=== PATIENT | female | born 1955 | race Caucasian/White ===

== ENCOUNTER 2019-10-21 13:24 | Inpatient (IN) ==
[2019-10-21] MEDS ORDERED: PNEUMOVAX 23 IM ONE (14:45)
[2019-10-21] MEDS ORDERED: FLU VACCINE IM ONE (14:45)
[2019-10-21] MEDS ORDERED: ZOFRAN IV PRN (15:30)
[2019-10-21] MEDS ORDERED: MORPHINE IV PRN (15:36)
[2019-10-21 16:41] LABS: AGAP 12; ALBUMIN 4.1 g/dL (3.5-5.0); ALKALINE PHOSPHATASE 106 U/L (32-104); BASO# 0.02 X1000 (0.0-0.2); BASO% 0.2 % (0.0-0.8); BUN 11 mg/dL (8-22); CALCIUM 9.4 mg/dL (8.8-10.2); CHLORIDE 104 mmol/L (98-107); CK PROFILE 38 U/L (24-173); COSMO 284; CREATININE 0.6 mg/dL (0.5-0.9); ESTIMATED GFR > 60; GLUCOSE 100 mg/dL (70-104); GOT 15 U/L (10-30); GPT 16 U/L (10-36); HEMATOCRIT 42.6 % (37.0-47.0); HEMOGLOBIN 13.9 g/dL (12.0-16.0); IMM GRAN# 0.06 X1000 (0.0-0.04); IMM GRAN% 0.6 % (0.0-0.5); LYMPH# 2.37 X1000 (1.2-3.4); LYMPH% 24.4 % (20.5-51.1); MCH 30.2 PG (27-31); MCHC 32.6 g/dL (33-37); MCV 92.4 FL (81-99); MONO# 0.77 X1000 (0.11-0.59); MONO% 7.9 % (1.7-9.3); MPV 10.5 FL (7.4-10.4); NEUT# 6.38 X1000 (1.4-6.5); NEUT% 65.9 % (42.2-75.2); PLT 394 X1000 (130-400); RBC 4.61 XMIL (4.2-5.4); RDW 12.4 % (11.5-14.5); SODIUM 143 mmol/L (136-145); TCO2 27 mmol/L (25-35); TOTAL PROTEIN 7.3 g/dL (6.3-8.3)
[2019-10-21] MEDS: NS 1,000 ML IV SCH (16:44)
[2019-10-21 16:45] LABS: INR 0.96; PROTIME 13.3 Seconds (11.0-16.0)
[2019-10-21] MEDS: LEVAQUIN 750 MG/D5W 750 MG/150 ML IVPB IV SCH (16:45)
[2019-10-21] MEDS: PROTONIX IV SCH (16:45)
[2019-10-21] MEDS: SODIUM CHLORIDE 0.9% INJ SCH (16:46)
[2019-10-21] MEDS ORDERED: DILAUDID IV PRN (18:12)
--- NOTE | 2019-10-21 18:41 | HISTORY AND PHYSICAL ---
PRIMARY CARE PHYSICIAN: Brian Rain DO CHIEF COMPLAINT: Abdominal pain. HISTORY OF PRESENT ILLNESS: Ms. Mix is a 64-year-old female with past medical history of hypertension and arthritis who presented to the hospital today as a direct admit from Dr. Rain's office. The patient states that she went to [facility] on Monday and was diagnosed with diverticulitis. She was started on Augmentin. She continued to have abdominal pain, nausea, and diarrhea, so she decided to go to Dr. Rain's office today. Dr. Rain did do an abdominal scan which showed acute diverticulitis and subsequently decided to admit the patient to the hospital under our services. The patient is complaining of nausea without vomiting, diarrhea with some minimal blood, chills, severe abdominal pain in the lower quadrant that radiates to the upper quadrant and weakness. She denies any cough, congestion, flu-like symptoms, dizziness, neck pain, excessive thirst, chest pain, palpitations, orthopnea, PND, leg edema, dyspnea, vomiting, constipation, dysuria, hematuria, muscle pain or weakness, syncope, dizziness, or any other pertinent symptoms at this time. REVIEW OF SYSTEMS: A 10 point review of systems has been obtained and are negative except what is stated above in HPI. PAST MEDICAL HISTORY: 1. Hypertension. 2. Arthritis. 3. Diverticulitis. PAST SURGICAL HISTORY: 1. Hysterectomy. 2. Cholecystectomy. 3. Appendectomy. 4. Tubal ligation. FAMILY HISTORY: Mother has heart problems, lung cancer, and an aortic aneurysm and also she had a femoral aneurysm. Father had COPD and lung cancer, which she also has a brother that has heart problems. SOCIAL HISTORY: She lives in [place]. She is retired recently in June. She admits to smoking a pack a day of cigarettes for greater than 30 years. She did recently quit smoking last week. She has been using Nicorette gum for smoking cessation. She denies any alcohol or illicit drug use. She denies any use of a cane or walker, or oxygen, CPAP or BiPAP use. PATIENT'S PHARMACY: [facility]. ALLERGIES: No known drug allergies. HOME MEDICATIONS: 1. Valsartan 160 mg p.o. daily. 2. Augmentin 875/125 one tablet p.o. b.i.d. PHYSICAL EXAM: VITAL SIGNS: Temperature 97.8 degrees, pulse rate 94, respiratory rate 20, blood pressure 113/69, O2 saturation 97% on room air. GENERAL: This is a 64-year-old female. She is lying in the bed. She is in no acute distress. She is well nourished and well developed. HEENT: Atraumatic, normocephalic. Pupils equal, round, reactive to light. Mucous membranes are dry. NECK: Supple. No lymphadenopathy. Trachea midline. No JVD. CV: Regular rate and rhythm. No murmurs, gallops, or rubs appreciated. RESPIRATORY: Lung sounds clear. Equal chest excursion. Respirations nonlabored. No accessory muscle usage. GI: Abdomen is tender. It is nondistended. Bowel sounds present x4. : CV tenderness noted. Patient is voiding without difficulty. NEUROLOGIC: Patient is awake, alert, oriented, able to follow all commands appropriately. No deficits noted. MUSCULOSKELETAL: Full distal strength noted. No abnormalities. No deformities. EXTREMITIES: No clubbing, no cyanosis, no edema. DP and PT pulses are present and palpable. SKIN: Warm, dry, intact. No rashes. No bruises. No diaphoresis. LABORATORY AND DIAGNOSTICS: White blood cell count 9.70, hemoglobin 13.9, hematocrit 42.6, platelet count 394,000. Sodium 143, potassium 4.0, BUN is 11, creatinine 0.6, estimated GFR is greater than 60. The patient did have abdominal scan at Dr. Rain's office today that showed positive for diverticulitis. ASSESSMENT: 1. Acute diverticulitis. 2. Dehydration. 3. Hypertension, chronic. 4. Tobacco dependency. PLAN: We will admit this patient to the medical floor. We will place this patient on IV fluid hydration of normal saline at 125 mL an hour. Start this patient on Levaquin 750 mg intravenous every 24 hours. Hold this patient NPO at this present time, except for ice chips and advance diet as tolerated. I will place her on bander and cellophaner machine, give her supplemental O2 as needed. We will repeat labs in the morning. We will provide her with morphine 2 mg IV q.3 hours p.r.n. pain. We will provide her with Zofran 4 mg IV q.4 hours. I will also provide her Protonix 40 mg IV q.24 hours. We will resume her home medications and once reconciled in the computer. I will provide her with sequential compression devices for deep vein thrombosis prophylaxis. I did talk to her about smoking cessation information for greater than 3 minute. The patient is already on a plan for this. I did provide her with a nicotine patch. All other further treatment pending hospital course and laboratory data. Dictated by PATRICIA Ulloa for Rik Soto MD cc: MD Brian Mai DO MTDD
[2019-10-21] MEDS: NICODERM PATCH TD SCH (19:30)
--- NOTE | 2019-10-21 19:34 | HISTORY AND PHYSICAL ---
ADDENDUM: Patient seen and examined by myself, full note dictated and discussed with nurse practitioner. The patient was seen over the weekend walk in clinic for diverticulitis. She was placed on Augmentin. Unfortunately she continues to worsen. She still having abdominal pain. Does have a history of diverticulosis but has never been infected before. We are going to admit her to the hospital, place her on antibiotics, fluids and will follow. cc: Rik Soto MD
[2019-10-21] MEDS: FLAGYL 500 MG/NS 500 MG/100 ML IVPB IV SCH (20:00)
[2019-10-21 22:15] LABS: URINE SOURCE CLEAN CATCH
[2019-10-21 22:17] LABS: BILIRUBIN URINE NEGATIVE (NEGATIVE); BLOOD URINE NEGATIVE (NEGATIVE); COLOR YELLOW; GLUCOSE URINE NEGATIVE (NEGATIVE); KETONE URINE NEGATIVE (NEGATIVE); LEUKOCYTES URINE NEGATIVE (NEGATIVE); NITRITE URINE NEGATIVE (NEGATIVE); PROTEIN URINE 50 mg/dL (NEGATIVE); SP GRAVITY URINE 1.031; TURBIDITY URINE HAZY (CLEAR); UR EPITHELIAL CELLS >10 /HPF (<10); URINE BACTERIA NEGATIVE /HPF; URINE RBC <10 /HPF (<10); URINE WBC <10 /HPF (<10); UROBILINOGEN URINE NORMAL (NORMAL)
[2019-10-22] MEDS: NS 1,000 ML IV SCH ×3 (00:23→21:14)
[2019-10-22] MEDS: FLAGYL 500 MG/NS 500 MG/100 ML IVPB IV SCH ×4 (02:00→21:14)
[2019-10-22 06:57] LABS: HEMATOCRIT 40.7 % (37.0-47.0); HEMOGLOBIN 13.1 g/dL (12.0-16.0); MCH 29.9 PG (27-31); MCHC 32.2 g/dL (33-37); MCV 92.9 FL (81-99); MPV 10.6 FL (7.4-10.4); RBC 4.38 XMIL (4.2-5.4); RDW 12.4 % (11.5-14.5); WBC 8.43 X1000 (4.8-10.8)
[2019-10-22 07:27] LABS: AGAP 13; BUN 15 mg/dL (8-22); CALCIUM 8.8 mg/dL (8.8-10.2); CHLORIDE 109 mmol/L (98-107); COSMO 286; CREATININE 0.5 mg/dL (0.5-0.9); ESTIMATED GFR > 60; GLUCOSE 101 mg/dL (70-104); POTASSIUM 4.5 mmol/L (3.5-5.1); SODIUM 143 mmol/L (136-145); TCO2 21 mmol/L (25-35)
[2019-10-22] MEDS: NICODERM PATCH TD SCH (08:17)
[2019-10-22] MEDS: LEVAQUIN 750 MG/D5W 750 MG/150 ML IVPB IV SCH (15:25)
[2019-10-22] MEDS: PROTONIX IV SCH (15:25)
[2019-10-22] MEDS: SODIUM CHLORIDE 0.9% INJ SCH (15:25)
[2019-10-23] MEDS: FLAGYL 500 MG/NS 500 MG/100 ML IVPB IV SCH ×2 (02:22→08:18)
--- NOTE | 2019-10-23 07:58 | PROGRESS NOTE ---
DATE: 10/22/2019 SUBJECTIVE: The patient notes that she does not feel any worse, but states that liquids still make her stomach hurt. Denies any blood in her stool or emesis. PHYSICAL EXAMINATION: Vital Signs: Temperature 97.6 degrees, pulse 65, respiratory rate 18, blood pressure 101/68. General: The patient is in no current respiratory distress. She is pleasant. She is lying in the bed. HEENT: Normocephalic. Neck: Supple. Cardiovascular: Regular rate. Chest: Clear. Abdomen: Soft, diffusely tender. No masses. Extremities: Moves all extremities well. ASSESSMENT: 1. Diverticulitis. 2. Volume depletion. 3. Nausea. 4. Hypertension. 5. Chronic tobacco abuse. PLAN: Discussed with the patient to continue with liquids until it no longer bothers her. We will continue antibiotics, pain control, and we will follow. cc: Rik Soto MD
[2019-10-23] MEDS: NS 1,000 ML IV SCH (08:18)
[2019-10-23] MEDS ORDERED: LEVAQUIN PO SCH (09:00)
[2019-10-23 11:31] VITALS: BP 130/65
[2019-10-23] MEDS: NICODERM PATCH TD SCH (11:46)
[2019-10-23] MEDS ORDERED: FLAGYL PO SCH (13:00)
--- NOTE | 2019-10-24 09:07 | DISCHARGE SUMMARY ---
ADMISSION DATE: 10/21/2019 DISCHARGE DATE: 10/23/2019 ADMITTING DIAGNOSES: 1. Acute diverticulitis. 2. Dehydration. 3. Hypertension, chronic. 4. Tobacco dependency. DISCHARGE DIAGNOSES: 1. Diverticulitis. 2. Volume depletion. 3. Nausea. 4. Hypertension. 5. Chronic tobacco abuse. HOSPITAL COURSE: Ms. Mix is a 64-year-old female who presented on 10/21/2019. The patient was a direct admit from Dr. Rain's office. The patient stated that she had abdominal pain with nausea and diarrhea. She had been diagnosed with diverticulitis 3 days prior to admission at [facility] because it was the weekend and was prescribed Augmentin. This did not help her symptoms. She went to her primary MD's office when it opened; this was Dr. Rain. He did do an abdominal scan which showed acute diverticulitis. The patient was admitted to our services at the hospital for acute diverticulitis. We did start her on IV Levaquin. We did hold her n.p.o. and start her on some IV fluid hydration. The patient was switched over to oral Levaquin and oral Flagyl. The patient was started on a clear liquid diet. She was having trouble keeping liquids down. She stated they were hurting her stomach 24 hours after admit. At 48 hours after admission, the patient is able to tolerate a diet. She is feeling much better. She is being discharged home today. We will continue her Levaquin and Flagyl p.o. for a total 10 days of treatment. DISCHARGE INSTRUCTIONS: The patient is to follow up with her primary care physician, Dr. Rain, in 1 week. DISCHARGE MEDICATIONS: 1. Valsartan 160 mg p.o. daily. 2. Flagyl 500 mg p.o. q. 8 hours. 3. Levaquin 500 mg p.o. daily. DISCHARGE DIET: Patient is to resume a healthy heart diet as tolerated. DISCHARGE ACTIVITY: Patient is to resume activity as tolerated. DISCHARGE DISPOSITION/INSTRUCTIONS: Patient is to discharge home with self care. She is to follow up with her primary care physician, Dr. Rain, in 1 week. She is to call and schedule this appointment. She is to refrain from any smoking or alcohol intake. The patient is to notify her primary care physician for any questions or concerns. Dictated by PATRICIA Ulloa for Rik Soto MD cc: MD Brian Mai DO MTDD
--- NOTE | 2019-10-24 20:46 | DISCHARGE SUMMARY ---
ADMISSION DATE: 10/21/2019 DISCHARGE DATE: 10/23/2019 ADDENDUM: Patient seen and examined by myself. Full note dictated and discussed with nurse practitioner. On discharge, patient is awake, alert. She is feeling better. She is in no distress. Notes that she is able to eat without any real difficulty. Therefore, we will discharge her home. She was admitted with acute diverticulitis, placed on IV Levaquin, Flagyl, and fluids, and kept n.p.o. until her symptoms improved, and then transitioned to a soft diet on discharge. cc: Rik Soto MD
== END 2019-10-23 12:09 | disposition home or self-care (01) | DRG 392 ==
LOC: DIRADM → OBSVTOIN 13:24 → P.MEDSURG 13:41
PROVIDERS: ATTEND Family Medicine

== ENCOUNTER 2020-01-22 18:05 | Observation (INO) ==
[2020-01-22] MEDS ORDERED: BENADRYL IV ONE (18:23)
[2020-01-22] MEDS ORDERED: PEPCID IV ONE (18:23)
[2020-01-22] MEDS ORDERED: SODIUM CHLORIDE 0.9% INJ ONE (18:23)
--- NOTE | 2020-01-22 18:26 | PROVIDER DOCUMENTATION ---
HPI-General Adult - General Chief Complaint: N/V/D Stated Complaint: NAUSEA AND VOMITING Time Seen by Provider: 01/22/20 18:05 Source: patient Allergies/Adverse Reactions: Patient Allergies Allergy/AdvReac Type Severity Reaction Status Date / Time promethazine HCl * Allergy hallucinati Verified 01/22/20 18:19 [From Phenergan] ons codeine AdvReac "out of it Verified 01/22/20 18:19 for 2 days" Home Medications: Home Medication List Medication Instructions Recorded Confirmed Last Taken Type Valsartan 1 tab PO DAILY 10/21/19 01/22/20 01/22/20 History Levofloxacin [Levaquin] 500 mg PO DAILY #8 tab 10/23/19 01/22/20 01/22/20 Rx Pantoprazole Sodium [Protonix] 40 mg PO QAM 01/22/20 01/22/20 01/22/20 History - History of Present Illness -Gen Adult Nature of Presenting Problems: 64 YOF presents with c/o n/v, shaking chills since taking levaquin 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 She reports that she was tested 8 days ago for COVID and flu, both negative. today she was given a rocephin shot and levaquin. She is noted to be red, skin with chills in moderate distress. MD was notified at this time and came to bedside Location of Pain/Injury: reports: generalized Pain Radiation: reports: no radiation Quality of Pain: reports: none Severity: reports: severe Onset/Duration: reports: just prior to arrival Timing: reports: still present Context/Activities at Onset: reports: other (taking new medications) Modifying Factors: improves with: nothing Associated Symptoms: reports: back/neck pain, cough, headaches, nausea, shortness of breath, vomiting, weakness Similar Symptoms Previously?: No Recently seen or treated by another doctor?: No Review of Systems - Adult - REVIEW OF SYSTEMS - ADULT Constitutional: reports: see HPI, chills. denies: no symptoms reported, fever, fatique, night sweats, weight gain, weight loss, other Eyes: reports: no symptoms reported. denies: see HPI, discharge, dry eyes, d ecreased vision, blurred vision, double vision, eye pain, redness, other Ears, Nose, Mouth & Throat: reports: no symptoms reported. denies: see HPI, ear discharge, ear pain, hearing loss, tinnitus, epistaxis, sinus problem, nose pain, loose teeth, mouth/dental pain, mouth swelling, hoarseness, throat pain, throat swelling, other Cardiovascular: reports: no symptoms reported. denies: see HPI, chest pain, edema, heart murmur, irregular heart rate, orthopnea, palpitations, poor circulation, PND, syncope, other Respiratory: reports: cough, shortness of breath. denies: no symptoms reported, see HPI, chronic cough, dyspnea on exertion, excessive sputum production, hemoptysis, pleurisy, wheezing, other Gastrointestinal: reports: see HPI, nausea, vomiting. denies: no symptoms reported, abdominal pain, hematemesis, constipation, diarrhea, difficulty swallowing, frequent heartburn, poor appetite, rectal bleeding, other Genitourinary: reports: no symptoms reported. denies: see HPI, dysuria, discharge, frequency, flank pain, frequent UTI's, hematuria, hesitency, incontinence, urinary retention, urgency, other Musculoskeletal: reports: no symptoms reported. denies: see HPI, bone pain, back pain, frequent leg cramps, joint pain, joint swelling, muscle aches, muscle weakness, neck pain, other Integumentary: reports: see HPI. denies: no symptoms reported, hives, hair loss, itching, mole changes, nail changes, rash, skin sores/ulcer, skin thickening, other Neurological: reports: no symptoms reported. denies: see HPI, ataxia, dizziness/vertigo, headache/migraines, loss of balance, numbness, paresthesia, seizure, slurred speech, syncope, tremors, other Psychiatric: reports: no symptoms reported. denies: see HPI, anxiety, anti- depressant use, alcohol/drug dependence, depression, emotional problems, insomnia, panic attacks, suicidal thoughts, other Endocrine: reports: no symptoms reported. denies: see HPI, change in skin pigment, excessive sweating, goiter, cold intolerance, heat intolerance, increased hunger, increased thirst, polyuria, other Hematologic/Lymphatic: reports: no symptoms reported. denies: see HPI, blood clots, easy bruising, low blood count, lymphedema, prolonged bleeding, swollen lymph nodes, transfusions, other Allergic/Immunologic: reports: no symptoms reported. denies: see HPI, allergic reactions, allergic rhinitis, asthma, eczema, food allergy, frequent infections, hay fever, hives, positive PPD, urticaria, other Past History - Adult - PAST MEDICAL HISTORY-ADULT Review of Records: reports: Nursing Assessment Review, Social history reviewed & non-contributory. Major Childhood Illnesses: reports: denies history Cardiovascular: reports: denies history Respiratory: reports: denies history Gastrointestinal: reports: denies history Obstetrical/Gynecological: reports: denies history Genitourinary: reports: denies history Musculoskeletal: reports: denies history Neurological: reports: denies history Endocrine/Immune: reports: denies history Other Conditions: reports: denies history - PRIOR SURGERIES/PROCEDURES Surgical/Procedure History: reports: appendectomy, cholecystectomy, hysterectomy , BTL - IMMUNIZATION STATUS Childhood Immunizations: See Nurse Assessment Flu Vaccine: See Nurse Assessment - FAMILY HISTORY Family History: reviewed, not pertinent Physical Exam-General - PHYSICAL EXAM-ADULT Initial Vital Signs Reviewed: Yes - CONSTITUTIONAL General Appearance: alert, moderate distress - EYES Eyes: PERRL/EOMI, pink conjunctivae - HEAD, EARS, NOSE, MOUTH & THROAT HENMT: normocephalic/atraumatic, moist mucous membranes, normal ENT inspection - NECK Neck: non-tender, full range of motion, supple - RESPIRATORY Respiratory: chest non-tender, lungs clear, normal breath sounds, no pleuratic chest pain, no respiratory distress, no accessory muscle use. negative: stridor, wheezing - CARDIOVASCULAR Cardiovascular: normal peripheral pulses, no edema, no gallop, no JVD, no murmur , tachycardia - GASTROINTESTINAL (ABDOMEN) Abdominal Exam: normal bowel sounds, non tender, soft, no organomegaly, no pulsatile mass - LYMPHATIC Lymphatic: no adenopathy - MUSCULOSKELETAL Back Exam: normal inspection, no CVA tenderness, no vertebral tenderness Extremity: normal range of motion, non-tender, normal gait, normal inspection, no pedal edema, no calf tenderness Peripheral Pulses: radial (R): 2+, radial (L): 2+ - SKIN Integumentary: normal turgor, warm/dry, erythema (Generalized) - NEUROLOGIC Neurologic: grossly normal - PSYCHIATRIC Psych/Mental Status: normal mood/affect, oriented x 3 Progress - PLAN OF CARE/RESULTS Progress/Plan/Lab Results: Vital Signs - 8 hr 01/22/20 18:09 Temperature 97.4 F L Pulse Rate 108 H Respiratory Rate 18 Blood Pressure 141/127 Orders Category Date Time Status Cardiac Monitoring DIRECTED Care 01/22/20 18:18 Active Monitor Blood Pressure ORDERED Care 01/22/20 18:18 Active NEWS Score 2-4:Order NEWS Lactate Series NOW Care 01/22/20 18:15 Active Saline Loc NOW Care 01/22/20 18:17 Active CHEST-PORTABLE [RAD] Stat Exams 01/22/20 18:06 Ordered CBC WITH ELECTRONIC DIFF [HEME] Stat Lab 01/22/20 18:17 Ordered COMPREHENSIVE METABOLIC PANEL [CHEM] Stat Lab 01/22/20 18:17 Ordered LACTATE, PLASMA [CHEM] Q3H Lab 01/22/20 18:30 Uncollected LACTATE, PLASMA [CHEM] Q3H Lab 01/22/20 21:30 Uncollected LACTATE, PLASMA [CHEM] Q3H Lab 01/23/20 00:30 Uncollected LACTATE, PLASMA [CHEM] Stat Lab 01/22/20 18:18 Ordered LIPASE [CHEM] Stat Lab 01/22/20 18:17 Ordered Result Diagrams: 01/22/20 18:20 01/22/20 18:20 - REASSESSMENT Reassessment #1 Time Reassessed: 19:07 Status: improving (CHILLS HAVE IMPROVED, IN NAD) - XRAY 1 XRAY Study: Chest Impression: See EMR Report ( EXAM: CHEST-PORTABLE HISTORY: SOB, COugh TECHNIQUE: Single view COMPARISON: 07/31/2017 FINDINGS: The lungs are well expanded. The heart is not enlarged. The vessels are not distended. There are no infiltrates. No effusion identified. IMPRESSION: No pneumonia Electronically signed by Ezekiel Huerta 01/22/2020 6:32 PM 01/22/201831 Interpreting Physician: Ezekiel Huerta MD Dictated Date/Time: 01/22/201831 cc: Kelsie Burns;) - CT/MRI 1 CT Study: Abdomen, Pelvis, Thorax Impression: See EMR Report (EXAM: CT THORAX/ABD/PELVIS W/CON HISTORY: WBC INCREASED, N/V, ABDOMINAL PAIN, UPPER BACK MICHELLE TECHNIQUE: 1. CT chest with intravenous contrast 2. CT abdomen and pelvis with intravenous contrast, but without oral contrast COMPARISON: Abdomen pelvis compared to 04/26/2016 FINDINGS: Chest: No pleural effusions. No cardiomegaly. No aortic aneurysm or dissection. No enlarged lymph nodes. Right upper lobe calcified granuloma. No infiltrates. No bronchiectasis. Minimal scarring or atelectasis in the left lung base. Abdomen and pelvis: The gallbladder has been removed. There is fatty infiltration of the liver. The liver measures over 20 cm in length. Normal spleen, pancreas, adrenal glands, and kidneys. No hydronephrosis. No aortic aneurysm. Moderate atherosclerosis. No bowel obstruction. There are scattered colonic diverticula. No abscess. The uterus has been removed. Urinary bladder is moderately distended and normal. Mild scoliosis. Moderate degenerative spine changes. Mild scoliosis. No compression fracture. IMPRESSION: Chest: No pneumonia Abdomen and pelvis: 1. Cholecystectomy 2. Hepatomegaly and fatty infiltration of the liver 3. Colonic diverticulosis 4. Hysterectomy This exam was performed using automated exposure control, adjustment of mA or kV according to patient size, and/or use of iterative reconstruction technique. Electronically signed by Ezekiel Huerta 01/22/2020 8:06 PM 01/22/202005 Interpreting Physician: Ezekiel Huerta MD Dictated Date/Time: 01/22/202001 cc: Kelsie Burns; None,PCP) Departure - Departure Date of Disposition Decision: 01/22/20 Time of Disposition Decision: 22:45 DIAGNOSIS: EFREN (acute kidney injury), Nausea & vomiting, Dehydration Allergic reaction Qualifiers: Encounter type: initial encounter Qualified Code(s): T78.40XA - Allergy, unspecified, initial encounter Disposition: ADMITTED INPATIENT 09 Certified Medical Emergency: Emergent Condition: Stable Referrals and Follow-Ups: None,PCP [Primary Care Provider] - - Critical Care Note This patient required my direct & personal management of CC.: No Attestation - Physician/ CIERRA Attestation Patient care was provided by Advanced Practice Provider:: Yes Advanced Practice Provider:: Kelsie Burns Advanced Practice Provider documentation review:: The Mid-level provider docum entation, treatment plan and medical decision making was reviewed by the physician who agrees with all treatment and medical decision making by the [facility]. The physician spent face to face time with patient:: Yes (Dr. Reyes) Advanced Practice Provider documentation review:: Supervising physician onsite and consulted in the evaluation and care of this patient. The physician did have a face to face encounter with the patient.
[2020-01-22 18:30] LABS: BASO# 0.02 X1000 (0.0-0.2); BASO% 0.1 % (0.0-0.8); EOS# 0.02 X1000 (0.0-0.7); EOS% 0.1 % (0.0-10.0); HEMATOCRIT 49.3 % (37.0-47.0); HEMOGLOBIN 16.6 g/dL (12.0-16.0); IMM GRAN# 0.11 X1000 (0.0-0.04); IMM GRAN% 0.6 % (0.0-0.5); LYMPH# 2.43 X1000 (1.2-3.4); MCH 30.2 PG (27-31); MCHC 33.7 g/dL (33-37); MCV 89.6 FL (81-99); MONO# 0.27 X1000 (0.11-0.59); MONO% 1.6 % (1.7-9.3); MPV 10.6 FL (7.4-10.4); NEUT# 14.53 X1000 (1.4-6.5); NEUT% 83.6 % (42.2-75.2); PLT 472 X1000 (130-400); RDW 12.2 % (11.5-14.5); WBC 17.38 X1000 (4.8-10.8)
--- NOTE | 2020-01-22 18:34 | Diag Imaging Result Doc PS360 ---
EXAM: CHEST-PORTABLE HISTORY: SOB, COugh TECHNIQUE: Single view COMPARISON: 07/31/2017 FINDINGS: The lungs are well expanded. The heart is not enlarged. The vessels are not distended. There are no infiltrates. No effusion identified. IMPRESSION: No pneumonia Electronically signed by Ezekiel Huerta 01/22/2020 6:32 PM
[2020-01-22 18:58] LABS: ALB/GLOB RATIO 1.7; ALBUMIN 4.5 g/dL (3.5-5.0); CALCIUM 9.3 mg/dL (8.8-10.2); CREATININE 1.2 mg/dL (0.5-0.9); POTASSIUM 3.8 mmol/L (3.5-5.1); TOTAL BILIRUBIN 0.86 mg/dL (0.20-1.00); TOTAL PROTEIN 7.1 g/dL (6.3-8.3)
[2020-01-22] MEDS ORDERED: NS 1,000 ML IV ONE ×2 (19:02→19:03)
[2020-01-22 20:02] LABS: INR 1.04; PROTIME 13.8 Seconds (11.0-16.0)
[2020-01-22 20:07] LABS: PTT 25.7 Seconds (22.3-41.8)
--- NOTE | 2020-01-22 20:09 | Diag Imaging Result Doc PS360 ---
EXAM: CT THORAX/ABD/PELVIS W/CON HISTORY: WBC INCREASED, N/V, ABDOMINAL PAIN, UPPER BACK MICHELLE TECHNIQUE: 1. CT chest with intravenous contrast 2. CT abdomen and pelvis with intravenous contrast, but without oral contrast COMPARISON: Abdomen pelvis compared to 04/26/2016 FINDINGS: Chest: No pleural effusions. No cardiomegaly. No aortic aneurysm or dissection. No enlarged lymph nodes. Right upper lobe calcified granuloma. No infiltrates. No bronchiectasis. Minimal scarring or atelectasis in the left lung base. Abdomen and pelvis: The gallbladder has been removed. There is fatty infiltration of the liver. The liver measures over 20 cm in length. Normal spleen, pancreas, adrenal glands, and kidneys. No hydronephrosis. No aortic aneurysm. Moderate atherosclerosis. No bowel obstruction. There are scattered colonic diverticula. No abscess. The uterus has been removed. Urinary bladder is moderately distended and normal. Mild scoliosis. Moderate degenerative spine changes. Mild scoliosis. No compression fracture. IMPRESSION: Chest: No pneumonia Abdomen and pelvis: 1. Cholecystectomy 2. Hepatomegaly and fatty infiltration of the liver 3. Colonic diverticulosis 4. Hysterectomy This exam was performed using automated exposure control, adjustment of mA or kV according to patient size, and/or use of iterative reconstruction technique. Electronically signed by Ezekiel Huerta 01/22/2020 8:06 PM
[2020-01-22 22:39] LABS: URINE SOURCE CLEAN CATCH
[2020-01-22 22:43] LABS: BILIRUBIN URINE NEGATIVE (NEGATIVE); BLOOD URINE NEGATIVE (NEGATIVE); COLOR YELLOW; GLUCOSE URINE NEGATIVE (NEGATIVE); KETONE URINE NEGATIVE (NEGATIVE); LEUKOCYTES URINE NEGATIVE (NEGATIVE); NITRITE URINE NEGATIVE (NEGATIVE); PROTEIN URINE 50 mg/dL (NEGATIVE); SP GRAVITY URINE 1.032; TURBIDITY URINE HAZY (CLEAR); UR EPITHELIAL CELLS >10 /HPF (<10); URINE BACTERIA 1+ /HPF; URINE RBC <10 /HPF (<10); URINE WBC <10 /HPF (<10); UROBILINOGEN URINE NORMAL (NORMAL)
[2020-01-22] MEDS ORDERED: VANCOMYCIN 1 GM/NS 1 GM/250 ML IVPB IV ONE (22:58)
[2020-01-22] MEDS ORDERED: ZOSYN 3.375 GM in NS 50 ML IV ONE (22:58)
--- NOTE | 2020-01-23 01:52 | HISTORY AND PHYSICAL ---
PRIMARY CARE PROVIDER: Dr. Rain. CHIEF COMPLAINT: Allergic reaction, nausea, vomiting, diarrhea. HISTORY OF PRESENTING ILLNESS: A 62-year-old female with a history of hypertension who presented to emergency department with 1-day history of having reaction to possibly Levaquin. She states that she went to doctor's office earlier today for some cold-like symptoms and was given Levaquin and Zithromax. She took the Levaquin and then she developed a rash and nausea, vomiting. She was seen in the ED. She was given Benadryl and, also, she was given Solu-Medrol initially at the physician's office. She was evaluated. She did have an elevated white count. Due to her presenting symptoms, it was thought that we will place her for observation for further evaluation and management. At the time of my examination, patient denied any headache, fever, chills, chest pain, shortness of breath, hemoptysis, melena, or any weight changes. The patient also states that she had the COVID-19 test and the flu test and they came back negative. PAST MEDICAL HISTORY: Includes hypertension. PAST SURGICAL HISTORY: Hysterectomy, cholecystectomy, appendectomy. ALLERGIES: Phenergan, codeine, Levaquin. CURRENT MEDICATIONS: Include pantoprazole 40 mg p.o. q.a.m., losartan 160 mg p.o. q. daily. SOCIAL HISTORY: A [id number] history of smoking. Denies any history of alcohol or illicit drug use. FAMILY HISTORY: No history of coronary artery disease. REVIEW OF SYSTEMS: Fourteen point review of systems is as in HPI. Other systems negative. PHYSICAL EXAMINATION: GENERAL: Cooperative, friendly female, she is resting comfortably now. VITAL SIGNS: Temperature 97.4 degrees, pulse 108, respiration 18, blood pressure 141/127. HEENT: Atraumatic, normocephalic. Extraocular movements intact. PERRLA. NECK: No masses. CHEST: Clear to auscultation. CARDIOVASCULAR: Regular rate and rhythm. S1, S2. ABDOMEN: Soft, positive bowel sounds. EXTREMITIES: No edema. NEUROLOGIC: She is awake, alert, oriented x3. GENITOURINARY: No bladder distention. SKIN: Warm. LABORATORIES AND STUDIES: WBC 17.38, hemoglobin 16.6, hematocrit 49.3, platelets 472,000. Sodium 137, potassium 3.8, chloride 98, CO2 is 18, BUN is 15, creatinine is 1.2. Glucose is 280. CT of the abdomen and pelvis was unremarkable. There was no pneumonia noted. ASSESSMENT: This is a 64-year-old female with a history of hypertension who, apparently, had an ALLERGIC REACTION TO LEVAQUIN. She was seen in the ED. She was given Benadryl. She had some improvement. However, she had some elevated white count and still was somewhat nauseated; subsequently, it was thought that we will place her for observation for further evaluation and management. 1. Suspected ALLERGIC REACTION TO LEVAQUIN. 2. Leukocytosis, possibly from recent steroid administration. 3. Hypertension. PLAN: 1. We will admit patient to medical floor with telemetry. 2. Continue with supportive treatment IV fluids and antiemetics and Benadryl as needed. 3. We will repeat her labs. 4. We will monitor blood pressure closely. 5. Put patient on DVT prophylaxis. SCD. 6. We will continue to follow and reassess, make further recommendations based on patient's clinical course. cc: Augustus Choi MD
[2020-01-23] MEDS ORDERED: TYLENOL PO PRN (02:15)
[2020-01-23] MEDS ORDERED: ZOFRAN IV PRN (02:15)
[2020-01-23] MEDS ORDERED: NS 1,000 ML IV SCH (02:15)
[2020-01-23] MEDS ORDERED: PRILOSEC PO SCH (07:00)
[2020-01-23 07:48] VITALS: BP 134/75
--- NOTE | 2020-01-23 10:15 | DISCHARGE SUMMARY ---
ADMISSION DATE: 01/22/2020 DISCHARGE DATE: 01/23/2020 HISTORY OF PRESENT ILLNESS: She is a patient of Dr. Rain. She had taken 1 dose of Levaquin and felt like she had an allergic reaction, nausea, vomiting, diarrhea, and facial swelling. She has a history of hypertension. Presented to the emergency department after a 1-day history of having a reaction to possible Levaquin. She states that she went to the doctor's office early in the day, cold-like symptoms. Was given Levaquin and Zithromax. She took the Levaquin and she developed a rash, nausea, and vomiting. Was seen in the emergency room. Given some Benadryl, also some Solu-Medrol initially. She was evaluated. She had elevated white count. Due to her presenting symptoms, I thought I would place her in for observation. PAST MEDICAL HISTORY: History of hypertension, history of hysterectomy, cholecystectomy, and appendectomy. She remained hemodynamically stable. PHYSICAL EXAMINATION: Today, she remains afebrile. Temperature 98.0 degrees, pulse 76, respirations 20, blood pressure 134/75. Pupils are equal and round. Lungs are clear in all lung perez. Cardiovascular Examination: Regular rhythm and rate without murmur or S3. Abdomen: Soft, nondistended, nontender. Positive bowel sounds in all quadrants. No edema. No facial edema. No tongue swelling. Conjunctivae unremarkable. No cervical or supraclavicular or femoral adenopathy. HOSPITAL COURSE: She wanted to go home. In fact, she was pretty insistent on going home so we will discharge her home. Her lactate was 4.9. When she came in, it was 0.9. The following morning, troponins were low. DISCHARGE MEDICATIONS: Obviously, do not take any more Levaquin. She was on valsartan before. I am going to hold that as well. She can have her Protonix 40 mg daily. Her blood pressures were still a little low so I do not think she needs losartan and it is possible to have angioedema from the valsartan as well so we will just hold the valsartan. FOLLOWUP: She will follow up with her primary care physician, Dr. Rain. cc: Christofer Hardy MD
== END 2020-01-23 11:57 | disposition home or self-care (01) ==
LOC: ED 18:05 → INTOOBSV 18:06 → SUATTDRO 18:06 → 3N 01-23 01:12
PROVIDERS: ATTEND Emergency Medicine